=== PATIENT | male | born 1990 | race Two or more races ===

== ENCOUNTER 2021-07-20 20:04 | Emergency (ER) | payer MEDICAID ==
[~2021-07-20] VITALS: Ht 175.3 cm; Wt 97.1 kg
[2021-07-20 21:00] LABS: ABG BASE EXCESS 0.4 mmol/L; ABG OXYGEN SATURATION 96.7 % (92.0-98.5); ABG PCO2 38.1 mmHg (35.0-45.0); ABG PH 7.426 (7.350-7.450); ABG PO2 86.9 mmHg (75.0-100.0); AaDO2 17.2 mmHg; COHb 0.3 % (0.5-1.5); MetHb 0.2 % (0.0-1.5); O2Hb 96.2 % (94.0-97.0); SITE, ABG Left Radial; VENT MODE, BG ROOM AIR
[2021-07-20] MEDS ORDERED: LORAZEPAM 0.5 MG TABLET PO ONE (21:00)
[2021-07-20] MEDS ORDERED: LORAZEPAM 0.5 MG TABLET ONE (21:03)
--- NOTE | 2021-07-20 21:10 | NUR ---
patient out to CT
[2021-07-20] MEDS ORDERED: OLANZAPINE 5 MG TABLET PO ONE (21:30)
[2021-07-20] MEDS ORDERED: ALPR0.5T PO (21:40)
--- NOTE | 2021-07-20 21:45 | NUR ---
patient stopped trembling to right side aware
[2021-07-20 22:34] VITALS: BP 135/85
== END 2021-07-20 22:20 | disposition home or self-care (01) ==
LOC: ER 20:09
DX: F45.8 Other somatoform disorders (principal); F41.0 Panic disorder [episodic paroxysmal anxiety]
CPT/HCPCS: 36600; 70450-TC; 71045-TC; 82803-TC